=== PATIENT | male | born 1980 | race Caucasian/White ===

== ENCOUNTER → 2019-02-01 | Outpatient (CLI) | payer MEDICARE, MEDICAID ==
--- NOTE | 2019-02-01 13:28 | KCIC ---
Three-view left hand dated 02/01/2019. No comparison available. Clinical indication: Pain and bruising from second digit. History of Buerger's disease. FINDINGS: 3 views left hand show amputation of the second through fourth digits at the base of the proximal phalanges. There is been amputation of the fifth digit at the level of the MCP joint. Amputation of the thigh at the base of the distal phalanx. There is asymmetric soft tissue swelling at the second digit amputation side some vague radiolucency in the stump of the proximal phalanx. No additional destructive changes are seen. No periostitis. IMPRESSION: 1. Vague radiolucency at the stump of the second proximal phalanx which could be related to early osteomyelitis. MRI or bone scan could provide additional information. 2. Multilevel amputation with no additional acute findings. Electronically signed by: Chris Gavin MD (02/01/2019 1:25 PM) [id number]
== END | disposition home or self-care (01) ==
LOC: KCIC 12:10
PROVIDERS: ATTEND Family Medicine
DX: L08.89 Other specified local infections of the skin and subcutaneous tissue (principal); M79.89 Other specified soft tissue disorders
CPT/HCPCS: 73130